=== PATIENT | male | born 1960 | race Caucasian/White ===

== ENCOUNTER 2018-09-04 11:53 | Inpatient (IN) | payer BC, SELFPAY ==
[2018-09-04] VITALS (7 sets, daily range): BP systolic 93–125; BP diastolic 69–89; PULSE 56–100; RESP 15–21; TEMP 36.1–36.8; O2SAT 93–97; BMI 25.5
--- NOTE | 2018-09-04 12:17 | EKG12_ITS ---
Test Reason : ABD PAIN Blood Pressure : / mmHG Vent. Rate : 058 BPM Atrial Rate : 058 BPM P-R Int : 142 ms QRS Dur : 078 ms QT Int : 430 ms P-R-T Axes : 057 000 052 degrees QTc Int : 422 ms Sinus bradycardia Otherwise normal ECG Confirmed by CAROLINA HIDALGO, PERCY ([id number]), editor producer SHIKHA NOVA ([id number]) on 09/08/2018 11:23:39 AM Referred By: Mary Grace Cabrera Confirmed By:ROMA FIGUEROA MD
--- NOTE | 2018-09-04 12:17 | CT_ITS ---
STUDY: CT ABDOMEN AND PELVIS WITHOUT CONTRAST REASON FOR EXAM: Male, 58 years old. Abdominal pain RADIATION DOSAGE (If Supplied By Facility): CTDIvol = ( 12.91 ) mGy, DLP = ( 740.09 ) mGycm TECHNIQUE: Transaxial images were obtained from the dome of the diaphragm to the symphysis pubis without oral contrast, and without intravenous contrast. Sagittal and coronal images were reconstructed. Individualized dose optimization techniques were used for this CT. COMPARISON: None. FINDINGS: The visualized lung bases are unremarkable. The visualized portions of the heart are within normal limits. Normal liver. There are surgical clips in the gallbladder fossa consistent with a prior cholecystectomy. There is mild splenomegaly. Normal pancreas. Normal bilateral adrenal glands. 2 cm exophytic cyst lower pole the right kidney. Normal left kidney. Moderate gastric distention. Multiple loops of moderately dilated fluid-filled small bowel with a transition point in the middle of the abdomen inferior to the umbilicus and at the level the iliac crest on image 128 consistent with a moderate small bowel obstruction no pneumatosis or pneumoperitoneum to suggest ischemia. Normal colon. The appendix is visualized and appears normal. Normal abdominal aorta. Normal inferior vena cava. Normal retroperitoneum. Normal urinary bladder. Normal abdominal wall. Normal osseous structures. CT/Abdomen/Pelvis without Cont IMPRESSION: 1. Moderate partial small bowel obstruction with a transition point in the middle the abdomen at the level the iliac crest. No evidence of ischemia. 2. Mild splenomegaly. Electronically Signed: Delta Goddard MD at 14:41 EDT Tel , Service support ,
--- NOTE | 2018-09-04 12:26 | ED.DCSUM_ITS ---
History of Present Illness Chief Complaint: Abd Pain Informant: Patient Onset: Weeks Narrative: Abdominal pain intermittently for weeks, indicates she was seen at outside facility in [facility] a few weeks ago had a CT scan of the work-up was unremarkable he was told he was constipated he was started on Colace and a liquid stool medicine that seemed to help his been having bowel movements since, however he said intermittent crampy pains that intensified today and was brought in for evaluation. He has had nausea but no vomiting no fever no cough he denies any other significant past history does report he has history of cholecystectomy no history of MD PE or DVT he works in installing [employer] did not injure himself anyway Past Medical History - Allergies and Home Meds Allergies/Adverse Reactions: Allergies celecoxib [From Celebrex] Allergy (Verified 09/04/18 11:55) Nausea Penicillins Allergy (Verified 09/04/18 11:55) Swelling Primary Care Physician: Care Physician,No Primary [Primary Care Provider] - Past Medical History: - - See above Surgical History: cholecystectomy Review of Systems General: Denies: Chills, Fever, Sweats Eyes: Denies: Visual changes - bilaterally, Diplopia ENT: Denies: Rhinorrhea, Sore throat Cardiovascular: Denies: Chest pain, Palpitations Respiratory: Denies: Dyspnea, Cough, Dyspnea on exertion Gastrointestinal: Reports: Abdominal pain. Denies: Nausea, Vomiting, Diarrhea, Melena, Hematochezia Genitourinary: Denies: Dysuria, Hematuria, Frequency Musculoskeletal: Denies: Back pain, Extremity Pain Skin: Denies: Rash, Wounds Neurological: Denies: Headache, Weakness, Numbness Physical Exam Vital Signs/Narrative: Vital Signs Temp Pulse Resp BP Pulse Ox 09/04/18 11:55 96.9 F L 69 17 108/73 97 General: Well nourished, Well developed, No Acute Distress Head: Normocephalic, Atraumatic Eyes: Perrl, EOMI ENT: Moist mucous membranes, No rhinorrhea Neck: Supple, Nontender Cardiovascular: Regular rate, Regular rhythm, No murmurs Respiratory: No distress, CTA bilaterally, Chest nontender Abdomen: Soft, Nondistended, Normal bowel sounds, Tender, Guarding Back: Nontender, Normal Inspection Extremities: Nontender, No edema Skin: Normal color, No rash Neurological: Alert, Oriented x3, Cranial nerves II-XII grossly intact, Normal Strength, Normal Sensation Psychological: Normal affect, Normal Mood Diagnostic/Tx/Re-eval - Medical Decision Making Given all the above his complaints his exam is history screening labs are obtained IV fluids pain management CT Patient screening labs are generally unremarkable, the abdominal CT shows partial small bowel obstruction see that report, we did discuss with the patient we recommended NG tube he agreed and admission he agreed IV fluids obtain a Pneumovax the hospital same further management and admission Admit stable Final impression, ED Disposition - Plan for ED Patient: Referrals: Care Physician,No Primary [Primary Care Provider] -
[2018-09-04] MEDS: Ondansetron 4 MG/2 ML Vial IV (12:32)
[2018-09-04] MEDS: 0.9% Normal Saline 1,000 ML 125 ML IV (12:32)
[2018-09-04] MEDS: morphine 8 MG/ML Syringe IV (12:32)
[2018-09-04 12:54] LABS: Absolute Lymphocyte Count 1.32 X10^3/ul (0.83-4.51); Absolute Neutrophil Count 7.9 X10^3/uL (2.0-7.7); Basophil# 0.05 X10^3/uL; Basophil% 0.5 % (0-1); Eosinophil# 0.07 X10^3/uL; Eosinophils% 0.7 % (0-5); Lymphocyte # 1.32 X10^3/ul (4.0); Lymphocyte % 12.9 % (19-41); Mean Corpuscular Volume 88.2 fL (80-94); Mean Platelet Vol. 11.6 fl (6.2-12.0); Monocyte# 0.91 X10^3/uL; Monocyte% 8.9 % (0-10); Neutrophil # 7.88 X10^3/uL (2.7-7.7); Neutrophil % 76.8 % (47-70); Platelet Count 227 K/mm3 (150-450); RBC Distribution Width CV 12.4 % (11.6-14.6); RBC Distribution Width SD 39.6 fl (35.1-43.9); Red Blood Count 5.33 M/mm3 (4.6-6.2); White Blood Count 10.3 K/mm3 (4.4-11.0)
[2018-09-04 12:55] LABS: POSITIVE COUNT NO; POSITIVE DIFFERENTIAL NO; POSITIVE MORPHOLOGY NO
[2018-09-04 13:07] LABS: AST(SGOT) 21 U/L (15-37); Alanine Aminotransfer ALT/SGPT 22 U/L (16-61); Albumin, Serum 3.4 g/dL (3.2-5.0); Alkaline Phosphatase 111 U/L (45-117); Anion Gap 10 (5-15); BUN 18 mg/dL (7-18); BUN/Creat Ratio 17.5 RATIO (10-20); Bilirubin, Direct 0.17 mg/dL (0.00-0.30); Calcium,Total 9.3 mg/dL (8.5-10.1); Chloride 101 mmol/L (98-107); Creatinine, Serum 1.03 mg/dL (0.70-1.30); EST Glomerular Filtration Rate 79 mL/min (>60); Est Glom Filt Rate - Afr Amer 95 mL/min (>60); Estimated Creatinine Clearance 80.72 ml/min; Globulin 3.4 g/dL (2.2-4.2); Glucose 367 mg/dL (74-106); Lipase 79 U/L (73-393); Potassium 4.8 mmol/L (3.5-5.1); Protein, Total 6.8 g/dL (6.4-8.2); Sodium Level 135 mmol/L (136-145)
[2018-09-04 13:10] LABS: Bacteria 0 SEEN /hpf (None Seen); Red Blood Cells-Urine 0 SEEN /hpf (0-5); Squamous Epithelial Cells - UA 0 SEEN /hpf (0-5)
[2018-09-04 13:13] LABS: Color, Urine Yellow (Yellow); Glucose, Dipstick 250 mg/dl (Normal); Ketone-Dipstick 15 mg/dl (Negative); Leukocyte Esterase-Dipstick Negative /ul (Negative); Nitrite-Dipstick Negative (Negative); Occult Blood-Urine Negative /ul (Negative); Protein-Dipstick Negative (Negative); Urine Bilirubin Dipstick Negative (Negative); Urine Clarity Clear (Clear); Urine Urobilinogen Normal (Normal)
[2018-09-04 13:22] LABS: Mucous, Urine RARE /hpf (<or=2+); White Blood Cells 0-5 SEEN /hpf (0-5)
[2018-09-04] MEDS: Morphine 4 MG/ML Syringe IV (14:37)
--- NOTE | 2018-09-04 15:26 | RAD_ITS ---
STUDY: X-RAY - ABDOMEN/PELVIS REASON FOR EXAM: Male, 58 years old. Nasogastric tube placement TECHNIQUE: Single AP view of the abdomen / pelvis. COMPARISON: None. FINDINGS: Nasogastric tube with the tip in the left upper quadrant likely within the cardia the stomach with the side-port in the distal esophagus. Status post cholecystectomy. Some mildly dilated loops of small bowel consistent with a partial small bowel obstruction. The visualized liver, spleen and kidneys are grossly normal in size and morphology. Normal soft tissue structures. Normal visualized osseous structures. RAD/Abdomen Single View (Portable) IMPRESSION: 1. Interval placement of nasogastric tube with the tip in the cardia the stomach and the side-port likely in the distal esophagus. 2. Partial small bowel obstruction. Electronically Signed: Delta Goddard MD at 16:50 EDT Tel , Service support ,
--- NOTE | 2018-09-04 15:35 | PCM.HP.STD ---
Problem List (1) Partial small bowel obstruction Status: Acute (2) Diabetes mellitus, type II Status: Chronic Qualifiers: Diabetes mellitus penitentiary insulin use: with emt intermediate use Diabetes mellitus complication status: with other specified complication Qualified Code(s): E11.69 - Type 2 diabetes mellitus with other specified complication; Z79.4 - truck terminal manager (current) use of insulin (3) HTN (hypertension) Status: Chronic Qualifiers: Hypertension type: essential hypertension Qualified Code(s): I10 - Essential (primary) hypertension (4) HLD (hyperlipidemia) Status: Chronic Qualifiers: Hyperlipidemia type: unspecified Qualified Code(s): E78.5 - Hyperlipidemia, unspecified (5) Former tobacco use Status: Chronic (6) History of alcohol abuse Status: Chronic (7) GERD (gastroesophageal reflux disease) Status: Chronic Qualifiers: Esophagitis presence: esophagitis presence not specified Qualified Code(s): K21.9 - Gastro-esophageal reflux disease without esophagitis (8) BPH (benign prostatic hyperplasia) Status: Chronic Qualifiers: Lower urinary tract symptom presence: unspecified whether lower urinary tract symptoms present Qualified Code(s): N40.0 - Benign prostatic hyperplasia without lower urinary tract symptoms History of Present Illness Date of Admission: 09/04/18 Chief Complaint: Abdominal pain The patient is a 58 y/o M w/ PMHx: Diabetes mellitus type II with neuropathy, HTN, HLD, GERD, BPH, Former Tobacco use, Former EtOH Abuse who presents to the [facility] ED on 09/04/18 with history of 1 to 2-week history of intermittent abdominal discomfort, initially in the periumbilical region with then transition to the left upper quadrant as well as epigastric, cramping and also severe occasionally in nature, currently 6 out of 10, associated nausea with dry heaving frequently with initially constipation with self administration of Colace and GoLYTELY following outside hospital ED evaluation with a CT at that time notable for constipation only with no movement today and worsened discomfort prompting return to ED. Work-up in the ED included T 96.9, heart rate 69, BP 108/73, respiratory rate 17, 97% on room air, CBC with W BC 10.3, heme globin 16, platelet 227 with left shift, CMP with sodium 135, glucose 367 otherwise not marked appearing, lipase 79, troponin less than 0.015, urinalysis with evidence of dehydration otherwise no acute infection evident, CT abdomen pelvis with a moderate partial small bowel obstruction with a transition point in the middle of the abdomen at the level of the iliac crest with no evidence of ischemia and noted mild splenomegaly. In the ED patient administered Zofran, morphine as well as normal saline. NG tube placed per ED. Surgery consulted and discussed case with evaluation of KUB with recommendation for advancements 4 cm which was relayed to nursing staff. Past Medical History Past Medical History (Chronic Problems): Chronic Problems Diabetes mellitus, type II (Chronic) HTN (hypertension) (Chronic) HLD (hyperlipidemia) (Chronic) Former tobacco use (Chronic) History of alcohol abuse (Chronic) GERD (gastroesophageal reflux disease) (Chronic) BPH (benign prostatic hyperplasia) (Chronic) Allergies celecoxib [From Celebrex] Allergy (Verified 09/04/18 11:55) Nausea Penicillins Allergy (Verified 09/04/18 11:55) Swelling Home Medications: Ambulatory Orders Medication Instructions Recorded Aspirin [Aspirin EC] 81 mg PO DAILY 09/04/18 Docusate Sodium [Colace] 100 mg PO DAILY PRN PRN 09/04/18 Gabapentin [Neurontin] 400 mg PO TID 09/04/18 Insulin Aspart [Novolog Flexpen 14 units SUBCUT TIDCM 09/04/18 ([facility])] Insulin Glargine,Hum.rec.anlog 35 unit SQ BID 09/04/18 [Lantus] Lisinopril [Zestril] 20 mg PO DAILY 09/04/18 Meloxicam [Mobic] 7.5 mg PO BID 09/04/18 Pantoprazole Sodium [Protonix] 40 mg PO DAILY 09/04/18 Tamsulosin HCl [Flomax] 0.4 mg PO DAILY 09/04/18 Surgical History: cholecystectomy, - - Cholecystectomy, left inguinal hernia repair, left ankle surgery. Psychiatric History: No pertinent psych hx Lives: Alone Smoking Status: Former smoker - Patient quit cigarette tobacco usage in 2008. Tobacco Use: Non-smoker Alcohol: Sober - Patient noted heavy alcohol consumption prior, sober since 2009. Drugs: None - *Family History Maternal History Items: - - Patient notes a maternal family history of heart disease, CO, age 82. Paternal History Items: - - Patient notes a paternal family history of coronary disease, heart disease, CO, carotid disease. Review of Systems Constitutional: Reports: Anorexia, Malaise, Weakness, Fatigue. Denies: Chills, Fever, Weight Change HEENT: Denies: Head Aches, Sinus Congestion, Sinus Drainage Cardiovascular: Denies: Chest Pain, Palpitations Respiratory: Denies: Cough, Shortness of breath at rest, Sputum production Gastrointestinal: Reports: Abdominal Pain, Constipation, Diarrhea, Nausea. Denies: Vomiting Genitourinary: Denies: Dysuria Musculoskeletal: Reports: Joint Pain. Denies: Joint Tenderness Skin: Denies: Rash, Wounds Neurological: Denies: Numbness, Tingling, Focal weakness Psychiatric: Denies: Anxiety, Depression, Homicidal Ideations, Suicidal Ideations Hematologic/ Lymphatic: Denies: Easy Bruising, Easy Bleeding VTE Information - Inpt Only VTE Present on Admission: No VTE Mechan Device Prophylaxis: SCD's VTE Pharm Prophylaxis ordered?: Yes Patient Problems: Active and Suspected Problems Partial small bowel obstruction (Acute) Subjective: Seated upright in ED bed, fatigued appearance, pending NG tube placement. Objective: Physical Examination: General: awake, alert, oriented x 3 and cooperative, seated upright in the ED bed, fatigued appearance, abdominal discomfort with palpation or with movement. Skin: normal color, turgor, no icterus, cyanosis. HEENT: AT/NC, EOMI, PERRLA, dry MM, no carotid bruits or JVD noted, staff sitting up for NG tube placement. Lungs: CTA bilaterally, moderate effort, moderate decrease BL bases, no rales, ronchi or wheezing. Heart: Regular rate and rhythm; no gallop, rub audible. Abdomen: soft, generalized notable discomfort with palpation, worse left-sided, not markedly distended, absent bowel sounds, difficult to assess HSM secondary to discomfort with examination. Extremities: no cyanosis, clubbing, or edema. Neurological: patient awake, alert, oriented x 3; cognitive function intact; pupils equally reactive to light and accomodation; cranial nerves II-XII grossly normal, moving all 4 extremities, no focal deficits, strength moderately to severely global decrease secondary to acute presentation. Psychiatric: affect appears fatigued, uncomfortable, no acute evidence of depressive or anxiety feelings. - Physical Exam Vital Signs Temp Pulse Resp BP Pulse Ox 96.9 F L 67 21 H 107/89 H 97 09/04/18 11:55 09/04/18 15:00 09/04/18 15:00 09/04/18 15:00 09/04/18 15:00 Oxygen Flow Rate (L/min) 2 Oxygen Delivery Method Nasal Cannula Weight: 178 lb Body Mass Index (BMI) 25.5 Laboratory Tests Past 24 Hrs 09/04/18 09/04/18 09/04/18 12:35 12:35 13:00 WBC 10.3 RBC 5.33 Hgb 16.0 Hct 47.0 MCV 88.2 MCH 30.0 MCHC 34.0 RDW 12.4 RDW Differential 39.6 Plt Count 227 MPV 11.6 Immature Gran % (Auto) 0.200 Neut % (Auto) 76.8 H Lymph % (Auto) 12.9 L [place] % (Auto) 8.9 Eos % (Auto) 0.7 Baso % (Auto) 0.5 Absolute Neuts (auto) 7.9 H Absolute Lymphs (auto) 1.32 Total Counted Not Reportable Sodium 135 L Potassium 4.8 Chloride 101 Carbon Dioxide 24.0 Anion Gap 10 BUN 18 Creatinine 1.03 Estim Creat Clear Calc 80.72 Est GFR (MDRD) Af Amer 95 Est GFR (MDRD) Non-Af 79 BUN/Creatinine Ratio 17.5 Glucose 367 H Calcium 9.3 Total Bilirubin 0.80 Direct Bilirubin 0.17 AST 21 ALT 22 Alkaline Phosphatase 111 Troponin I < 0.015 Total Protein 6.8 Albumin 3.4 Globulin 3.4 Lipase 79 Urine Color Yellow Urine Clarity Clear Urine pH 5.0 Ur Specific [place] 1.020 Urine Protein Negative Urine Glucose (UA) 250 H Urine Ketones 15 H Urine Occult Blood Negative Urine Nitrite Negative Urine Bilirubin Negative Urine Urobilinogen Normal Ur Leukocyte Esterase Negative Urine RBC 0 SEEN Urine WBC 0-5 SEEN Ur Squamous Epith Cells 0 SEEN Urine Bacteria 0 SEEN Urine Mucus RARE Assessment/Plan All Active Problems Partial small bowel obstruction (Acute) The patient is a 58 y/o M w/ PMHx: Diabetes mellitus type II with neuropathy, HTN, HLD, GERD, BPH, Former Tobacco use, Former EtOH Abuse who presents to the [facility] ED on 09/04/18 with history of 1 to 2-week history of intermittent abdominal discomfort, initially in the periumbilical region with then transition to the left upper quadrant as well as epigastric, cramping and also severe occasionally in nature, currently 6 out of 10, associated nausea with dry heaving frequently with initially constipation with self administration of Colace and GoLYTELY following outside hospital ED evaluation with a CT at that time notable for constipation only with no movement today and worsened discomfort prompting return to ED. (1) Abdominal pain, nausea, emesis w/ partial SBO: Work-up in the ED included T 96.9, heart rate 69, BP 108/73, respiratory rate 17, 97% on room air, CBC with W BC 10.3, heme globin 16, platelet 227 with left shift, CMP with sodium 135, glucose 367 otherwise not marked appearing, lipase 79, troponin less than 0.015, urinalysis with evidence of dehydration otherwise no acute infection evident, CT abdomen pelvis with a moderate partial small bowel obstruction with a transition point in the middle of the abdomen at the level of the iliac crest with no evidence of ischemia and noted mild splenomegaly. In the ED patient administered Zofran, morphine as well as normal saline. Will admit to MS, maintain on IVFs, continue NGT to suction w/ advancement 4 cm now with repeat KUB following, strict I&Os, IV pain/anti-emetics PRN, serial KUB as needed to montior bowel function, Famotidine IV, maintain NPO on bowel rest. General surgery consulted and pending. (2) Diabetes mellitus type II: Hold oral home regimen, continue home insulin regimen although with n.p.o. status may need to decrease long-acting by one half pending blood sugar trending, n.p.o. status, every 6 hour accu checks w/ ISS. (3) Hypertension: Holding patient home oral regimen given acute presentation with NG tube with bowel rest, PRN IV hydralazine in interim. (4) Hyperlipidemia: Not on regimen, defer to outpatient. (5) Former alcohol abuse: Sober since 2009, encouraged continued safe sobriety. (6) Former tobacco use: Encouraged continued tobacco cessation. (7) GERD: IV Famotidine. (8) BPH: Temporarily holding Flomax. (9) DVT prophylaxis: SCDs, lovenox. Code Visit Inpatient E&M: 69706 Init Hosp L3
--- NOTE | 2018-09-04 17:32 | NURSING ---
Per Kylee Oden RN from ER said the NG wasn't advanced 4cm.
--- NOTE | 2018-09-04 17:35 | RAD_ITS ---
STUDY: X-RAY - ABDOMEN/PELVIS REASON FOR EXAM: Male, 58 years old. Oral gastric tube placement TECHNIQUE: KUB COMPARISON: 09/04/2018 FINDINGS: There is an orogastric tube tip is in the stomach. There are distended loops of small bowel only partially included on the [id number] similar to prior. There is an unremarkable bowel gas pattern. There is no demonstrated free abdominal air. The visualized liver, spleen and kidneys are grossly normal in size and morphology. Normal soft tissue structures. Normal visualized osseous structures. RAD/Abdomen Single View (Portable) IMPRESSION: Orogastric tube tip in stomach Distended loops of small bowel only partially included on the exam similar to prior, ileus versus obstruction Electronically Signed: Rory Macias, at 18:53 EDT Tel , Service support ,
--- NOTE | 2018-09-04 17:51 | NURSING ---
0543 NG ADVANCED 4 CM AND KUB DONE.
[2018-09-04] MEDS: Morphine 2 MG/ML Syringe IV ×2 (18:04→20:03)
[2018-09-04] MEDS: Insulin Lispro 100 UNIT/ML INSULN.PEN SQ (18:10)
--- NOTE | 2018-09-04 18:34 | CON.PCM_ITS ---
Reason for Consult Date of Consultation: 09/04/18 History of Present Illness: The patient is a 58 year old M sent to the ER due to radiating abdominal pain as well as some chest pain. Patient states for the last couple weeks he has had abdominal pain near the umbilicus which would come and go. Patient states he has been to an outside ER in [place] a couple times and they have not found anything and sent him home per patient. Patient states even had a CAT scan while he was there however he did state it was only of a small area of abdomen. Patient had a CT abdomen pelvis on admit which showed bowel obstruction with transition point in the mid to distal ileum. Patient also has a bit of stool in his colon. Patient's labs were within normal range except for glucose of 360. Patient states he had a small bowel movement yesterday morning, denies any flatus recently. Patient states he went to the ER in [place] they initially did have him take Colace along with some GoLYTELY which he did take a week or so ago. Patient states he did have a colonoscopy about 3 years ago which was negative per the patient. States his mother was diagnosed with Crohn's disease at age 72. Otherwise denies any history of bowel cancer. Patient states he did have nausea today but denies any vomiting. The pain again started near the periumbilical area and then radiated throughout his abdomen and into his chest while he was at work, which made him concerned as he does have a family history of heart disease as he presented to the ER. Past Medical History Past Medical History (Chronic Problems): Chronic Problems Diabetes mellitus, type II (Chronic) HTN (hypertension) (Chronic) HLD (hyperlipidemia) (Chronic) Former tobacco use (Chronic) History of alcohol abuse (Chronic) GERD (gastroesophageal reflux disease) (Chronic) BPH (benign prostatic hyperplasia) (Chronic) Allergies celecoxib [From Celebrex] Allergy (Verified 09/04/18 11:55) Nausea Penicillins Allergy (Verified 09/04/18 11:55) Swelling Home Medications: Ambulatory Orders Medication Instructions Recorded Aspirin [Aspirin EC] 81 mg PO DAILY 09/04/18 Docusate Sodium [Colace] 100 mg PO DAILY PRN PRN 09/04/18 Gabapentin [Neurontin] 400 mg PO TID 09/04/18 Insulin Aspart [Novolog Flexpen 14 units SUBCUT TIDCM 09/04/18 ([facility])] Insulin Glargine,Hum.rec.anlog 35 unit SQ BID 09/04/18 [Lantus] Lisinopril [Zestril] 20 mg PO DAILY 09/04/18 Meloxicam [Mobic] 7.5 mg PO BID 09/04/18 Pantoprazole Sodium [Protonix] 40 mg PO DAILY 09/04/18 Tamsulosin HCl [Flomax] 0.4 mg PO DAILY 09/04/18 Surgical History: cholecystectomy, - - Cholecystectomy, left inguinal hernia repair, left ankle surgery. Psychiatric History: No pertinent psych hx Lives: Alone Smoking Status: Former smoker - Patient quit cigarette tobacco usage in 2008. Tobacco Use: Non-smoker Alcohol: Sober - Patient noted heavy alcohol consumption prior, sober since 2009. Drugs: None - *Family History Maternal History Items: - - Patient notes a maternal family history of heart disease, [place], age 82. Paternal History Items: - - Patient notes a paternal family history of coronary disease, heart disease, [place], carotid disease. Review of Systems Constitutional: Reports: Anorexia. Denies: Fever Eyes: Denies: Blurred vision HEENT: Denies: Difficulty Swallowing Cardiovascular: Denies: Chest Pain Respiratory: Denies: Cough Gastrointestinal: Reports: Abdominal Pain, Nausea. Denies: Vomiting Genitourinary: Denies: Dysuria Neurological: Denies: Blurred vision, Slurred speech Psychiatric: Reports: Depression. Denies: Suicidal Ideations Hematologic/ Lymphatic: Denies: Easy Bleeding Patient Problems: Active and Suspected Problems Partial small bowel obstruction (Acute) - Physical Exam General: Alert, Oriented x3, Cooperative HEENT: Atraumatic, - - NG in place Lungs: Normal air movement Cardiovascular: Regular rate Abdomen: Soft, Distended - Mild, Tender - Mostly in the right mid/lower abdomen, equivocal rebound no guarding Extremities: No clubbing, No cyanosis, No edema Neurological: Cranial nerves II-XII grossly intact Psych/Mental Status: Normal Affect Vital Signs Temp Pulse Resp BP Pulse Ox 97.3 F L 69 16 110/69 95 09/04/18 18:19 09/04/18 18:19 09/04/18 18:19 09/04/18 18:19 09/04/18 18:19 Oxygen Flow Rate (L/min) 2 Oxygen Delivery Method Room Air Weight: 178 lb Body Mass Index (BMI) 25.5 Intake and Output for Last 24 Hours 09/02/18 09/03/18 09/04/18 23:59 23:59 23:59 Output Total 500 / 500 Balance -500 / -500 Laboratory Tests Past 24 Hrs 09/04/18 09/04/18 09/04/18 12:35 12:35 13:00 WBC 10.3 RBC 5.33 Hgb 16.0 Hct 47.0 MCV 88.2 MCH 30.0 MCHC 34.0 RDW 12.4 RDW Differential 39.6 Plt Count 227 MPV 11.6 Immature Gran % (Auto) 0.200 Neut % (Auto) 76.8 H Lymph % (Auto) 12.9 L [place] % (Auto) 8.9 Eos % (Auto) 0.7 Baso % (Auto) 0.5 Absolute Neuts (auto) 7.9 H Absolute Lymphs (auto) 1.32 Total Counted Not Reportable Sodium 135 L Potassium 4.8 Chloride 101 Carbon Dioxide 24.0 Anion Gap 10 BUN 18 Creatinine 1.03 Estim Creat Clear Calc 80.72 Est GFR (MDRD) Af Amer 95 Est GFR (MDRD) Non-Af 79 BUN/Creatinine Ratio 17.5 Glucose 367 H Calcium 9.3 Total Bilirubin 0.80 Direct Bilirubin 0.17 AST 21 ALT 22 Alkaline Phosphatase 111 Troponin I < 0.015 Total Protein 6.8 Albumin 3.4 Globulin 3.4 Lipase 79 Urine Color Yellow Urine Clarity Clear Urine pH 5.0 Ur Specific [place] 1.020 Urine Protein Negative Urine Glucose (UA) 250 H Urine Ketones 15 H Urine Occult Blood Negative Urine Nitrite Negative Urine Bilirubin Negative Urine Urobilinogen Normal Ur Leukocyte Esterase Negative Urine RBC 0 SEEN Urine WBC 0-5 SEEN Ur Squamous Epith Cells 0 SEEN Urine Bacteria 0 SEEN Urine Mucus RARE Assessment/Plan All Active Problems Partial small bowel obstruction (Acute) 58-year-old male with small bowel obstruction, diabetes 1. Keep patient n.p.o./IV fluids and NG to low intermittent suction. If patient appears adequately decompressed in the morning we will plan to do a small bowel follow-through. Did discuss with patient that if the contrast is unable to pass the transition area in the small bowel he may need surgery to take a look which could include possible bowel resection. Will check KUB in the morning. 2. Continue pain control 3. Continue I/OS?strict Neva Bain M.D. Pager: [phone] [facility] [address] [place] [address], [facility] [place], [address] [place] [address] Office: [phone] Code Visit Inpatient E&M: 62260 Init Hosp L2
[2018-09-04 18:40] LABS: Bedside Glucose 295 mg/dL (70-110)
[2018-09-04] MEDS: 0.9% Normal Saline 1,000 ML 150 ML IV (21:00)
[2018-09-05] MEDS: Insulin Lispro 100 UNIT/ML INSULN.PEN SQ (00:37)
[2018-09-05 00:56] LABS: Bedside Glucose 200 mg/dL (70-110)
[2018-09-05 02:55] VITALS: BP 104/64; PULSE 62; RESP 20; TEMP 36.8; O2SAT 93
[2018-09-05] MEDS: Morphine 4 MG/ML Syringe IV (02:59)
[2018-09-05] MEDS: Enoxaparin 40 MG/0.4 ML Syringe SC (05:49)
--- NOTE | 2018-09-05 05:55 | RAD_ITS ---
STUDY: X-RAY - ABDOMEN/PELVIS REASON FOR EXAM: Male, 58 years old. TECHNIQUE: Portable semierect abdominal film COMPARISON: None. FINDINGS: Normal visualized lung bases. There is mild dilatation of the jejunal loops. There is no demonstrated free abdominal air. The visualized liver, spleen and kidneys are grossly normal in size and morphology. Normal soft tissue structures. Normal visualized osseous structures. There is an NG tube which is coiled in the stomach that was advanced to more to the antrum under fluoroscopic control. RAD/Abdomen Single View IMPRESSION: Mildly dilated jejunal loops. NG tube placed within the stomach. Electronically Signed: Solitario Darnell, at 9:30 EDT Tel , Service support ,
[2018-09-05 05:56] LABS: Bedside Glucose 126 mg/dL (70-110)
--- NOTE | 2018-09-05 06:28 | PCM.PN.SRG ---
Patient Problems: Active and Suspected Problems Partial small bowel obstruction (Acute) Subjective: Patient still having some abdominal pain requiring pain meds dates may be a slow more on the left side than the right side this morning, denies any flatus or bowel movements. NG only put out about 100 overnight however question how well it is working as the vent had fluid in it. - Physical Exam General: Alert, Oriented x3, Cooperative, No apparent distress HEENT: Atraumatic Lungs: Normal air movement Cardiovascular: Regular rate Abdomen: Soft, Distended - Mild, Tender - Left lower quadrant and right upper quadrant, no peritoneal signs Extremities: No clubbing, No cyanosis, No edema Neurological: Cranial nerves II-XII grossly intact Psych/Mental Status: Normal Affect Vital Signs Temp Pulse Resp BP Pulse Ox 98.2 F 62 20 H 104/64 93 09/05/18 02:55 09/05/18 02:55 09/05/18 02:55 09/05/18 02:55 09/05/18 02:55 Oxygen Flow Rate (L/min) 2 Oxygen Delivery Method Room Air Weight: 178 lb Body Mass Index (BMI) 25.5 Intake and Output for Last 24 Hours 09/03/18 09/04/18 09/05/18 23:59 23:59 23:59 Intake Total 180 / 1254 2182 / 2182 Output Total 500 / 820 680 / 680 Balance -320 / 434 1502 / 1502 Laboratory Tests Past 24 Hrs 09/04/18 09/04/18 09/04/18 12:35 12:35 13:00 WBC 10.3 RBC 5.33 Hgb 16.0 Hct 47.0 MCV 88.2 MCH 30.0 MCHC 34.0 RDW 12.4 RDW Differential 39.6 Plt Count 227 MPV 11.6 Immature Gran % (Auto) 0.200 Neut % (Auto) 76.8 H Lymph % (Auto) 12.9 L [place] % (Auto) 8.9 Eos % (Auto) 0.7 Baso % (Auto) 0.5 Absolute Neuts (auto) 7.9 H Absolute Lymphs (auto) 1.32 Total Counted Not Reportable Sodium 135 L Potassium 4.8 Chloride 101 Carbon Dioxide 24.0 Anion Gap 10 BUN 18 Creatinine 1.03 Estim Creat Clear Calc 80.72 Est GFR (MDRD) Af Amer 95 Est GFR (MDRD) Non-Af 79 BUN/Creatinine Ratio 17.5 Glucose 367 H Calcium 9.3 Total Bilirubin 0.80 Direct Bilirubin 0.17 AST 21 ALT 22 Alkaline Phosphatase 111 Troponin I < 0.015 Total Protein 6.8 Albumin 3.4 Globulin 3.4 Lipase 79 Urine Color Yellow Urine Clarity Clear Urine pH 5.0 Ur Specific [place] 1.020 Urine Protein Negative Urine Glucose (UA) 250 H Urine Ketones 15 H Urine Occult Blood Negative Urine Nitrite Negative Urine Bilirubin Negative Urine Urobilinogen Normal Ur Leukocyte Esterase Negative Urine RBC 0 SEEN Urine WBC 0-5 SEEN Ur Squamous Epith Cells 0 SEEN Urine Bacteria 0 SEEN Urine Mucus RARE POC Glucose 09/05/18 09/05/18 09/04/18 05:42 00:32 18:09 POC Glucose 126 H 200 H 295 H Medical Necessity - Tobacco Use Smoking Status: Former smoker - Patient quit cigarette tobacco usage in 2008. Tobacco Use: Non-smoker Assessment/Plan All Active Problems Partial small bowel obstruction (Acute) 58-year-old male with small bowel obstruction, diabetes 1. Keep patient n.p.o./IV fluids and NG to low intermittent suction. Patient's KUB still shows some dilated small bowel. Will attempt a small bowel follow-through with Gastrografin. Discussed with patient that he is unable to tolerate or this is unable to pass patient may require surgery which would include diagnostic laparoscopy, possible laparotomy, possible bowel resection. Discussed the procedure including risk but not limited to bleeding, infection, injury to another organ (i.e.colon/Small bowel, etc.), adhesions in the future, hernia at incision site, and anesthesia. Patient no further questions at this time and was agreeable to plan. 2. Continue pain control 3. Continue I/OS?strict Neva Bain M.D. Pager: [phone] [facility] [address] [place] [address], [facility], [address] [place] [id number] Office: [phone]
--- NOTE | 2018-09-05 07:00 | RAD_ITS ---
STUDY: FL SMALL BOWEL FOLLOW-THROUGH WITH SERIAL FILMS REASON FOR EXAM: Male, 58 years old. Small bowel obstruction? TECHNIQUE: The dictating radiologist was not present at the time of imaging acquisition and did not perform the spot views. Next line radiodense contrast administered via nasogastric tube. Surface Ship Usw Supervisor imaging was followed by contrast administration and serial views of the abdomen at 15, 40, 60, 90, 120 minutes. Thereafter, several spot images were obtained in the right quadrant of the abdomen. COMPARISON: X-ray abdomen 09/05/2018, 09/04/2018. FINDINGS: Cholecystectomy. No apparent organomegaly. Moderate stool burden of the ascending colon, mild stool burden of large bowel distally. Nondilated large bowel. On paperboard boxes estimator images, multiple mildly dilated loops of small bowel are present in the left quadrant of the abdomen. Measuring up to 4.7 cm in diameter. Upon administration of contrast, grossly normal caliber, contour and mucosal pattern of the stomach which is incompletely distended. The contrast is administered by nasogastric tube. At 15 minutes, contrast traverses the majority of the jejunum which lies in the right quadrant of the abdomen. Loops of dilated ileum occupy the left quadrant of the abdomen. The jejunum is nondilated and exhibits normal mucosal pattern. A small amount of contrast does enter the proximal ileum. 40 minutes, multiple loops of proximal ileum in the right lower quadrant of the abdomen filled with contrast, with limited extension of contrast into the dilated loops of ileum in the left quadrant. At 60 minutes, the dilated loops of ileum in the left quadrant of the abdomen filled with contrast. At 90 minutes, no significant progression of contrast. At 120 minutes, contrast enters the proximal large bowel. Spot imaging of the right lower quadrant reveals nondilated loops of distal ileum. RAD/Small Bowel Series Only IMPRESSION: Dilated loops of proximal to mid ileum, predominantly distributed in left quadrant of the abdomen, with delayed small bowel transit. Consistent with persistent intermediate grade small bowel obstruction. Comparison CT abdomen and pelvis of 09/04/2017 there was a defined transition point between dilated and nondilated ileum centered on axial series 2 image 127 in the midline, and coronal series 601 image 36 and sagittal series 602 image 78, with bird beaking. Suspicious for adhesive disease. Electronically Signed: Delta Castro MD at 12:44 EDT Tel , Service support ,
[2018-09-05 07:18] LABS: Absolute Lymphocyte Count 1.32 X10^3/ul (0.83-4.51); Absolute Neutrophil Count 3.7 X10^3/uL (2.0-7.7); Basophil# 0.04 X10^3/uL; Basophil% 0.7 % (0-1); Eosinophil# 0.08 X10^3/uL; Eosinophils% 1.3 % (0-5); Hematocrit 42.7 % (40-54); Hemoglobin 14.2 g/dl (13.0-16.5); Lymphocyte # 1.32 X10^3/ul (4.0); Lymphocyte % 22.1 % (19-41); Mean Corp Hgb Conc 33.3 g/gl (32-36); Mean Corpuscular Hgb 29.8 pg (27.0-32.0); Mean Corpuscular Volume 89.5 fL (80-94); Monocyte# 0.83 X10^3/uL; Monocyte% 13.9 % (0-10); Neutrophil # 3.68 X10^3/uL (2.7-7.7); Neutrophil % 61.8 % (47-70); Platelet Count 193 K/mm3 (150-450); RBC Distribution Width CV 12.5 % (11.6-14.6); RBC Distribution Width SD 40.4 fl (35.1-43.9); Red Blood Count 4.77 M/mm3 (4.6-6.2)
[2018-09-05 07:37] LABS: Anion Gap 2 (5-15); BUN 13 mg/dL (7-18); BUN/Creat Ratio 16.2 RATIO (10-20); Calcium,Total 8.1 mg/dL (8.5-10.1); Chloride 108 mmol/L (98-107); EST Glomerular Filtration Rate 105 mL/min (>60); Est Glom Filt Rate - Afr Amer 127 mL/min (>60); Estimated Creatinine Clearance 103.92 ml/min; Glucose 106 mg/dL (74-106); Potassium 3.9 mmol/L (3.5-5.1); Sodium Level 139 mmol/L (136-145)
[2018-09-05 07:43] LABS: POSITIVE COUNT NO; POSITIVE DIFFERENTIAL NO; POSITIVE MORPHOLOGY NO
[2018-09-05 08:00] VITALS: BP 96/58; PULSE 61; RESP 16; TEMP 36.7; O2SAT 96
--- NOTE | 2018-09-05 08:53 | NURSING ---
pt off unit for xray notified by rn discharge that surgery scheduled by Dr. Bain for [id number]
[2018-09-05 10:37] LABS: Hemoglobin A1c 11.5 % (4.2-6.3)
--- NOTE | 2018-09-05 11:08 | NURSING ---
Pt off unit at this time for xray- brother in pt room waiting for his return.
--- NOTE | 2018-09-05 11:43 | NURSING ---
Pt reports flatus
--- NOTE | 2018-09-05 12:11 | PCM.PROGNOTE ---
Patient Problems: Active and Suspected Problems Partial small bowel obstruction (Acute) Subjective: Chief complaint: Follow-up after admission for partial small bowel obstruction. Patient seen and examined. No acute events overnight. Abdominal pain improved but still alert, still having abdominal distention. He started passing small amount of flatus, no bowel movement. Denied nausea or vomiting. His vital signs are stable. - Physical Exam General: Alert, Oriented x3, Cooperative, No apparent distress HEENT: Atraumatic, PERRLA, EOMI, Normocephalic Oral: Moist Mucosa, No Gingival or Mucosal Lesions/ Ulcerations Neck: Supple, No JVD, Negative Carotid Bruits, Trachea Midline, Thyroid Normal Size and Texture Lungs: Clear to auscultation, Normal air movement, No rhonchi, No wheeze, No rales, Rhonchi Cardiovascular: Regular rate, Regular Rhythm, Normal S1, Normal S2, PMI Normal Abdomen: Soft, Hyperactive Bowel Sounds, Distended, Tender - Minimal tenderness, no guarding or rigidity. Extremities: No clubbing, No cyanosis, No edema Skin: No rashes, No breakdown Lymphatic: No Cervical, Supraclavicular, or Inguinal Adenopathy Neurological: Cranial nerves II-XII grossly intact, Motor Exam 5/5 strength throughout Psych/Mental Status: Normal Affect, Appropriate, Alert and oriented to time, place, person, mood and affect Vital Signs Temp Pulse Resp BP Pulse Ox 98.1 F 61 16 96/58 L 96 09/05/18 08:00 09/05/18 08:00 09/05/18 08:00 09/05/18 08:00 09/05/18 08:00 Oxygen Flow Rate (L/min) 2 Oxygen Delivery Method Room Air Weight: 178 lb Body Mass Index (BMI) 25.5 Intake and Output for Last 24 Hours 09/03/18 09/04/18 09/05/18 23:59 23:59 23:59 Intake Total 180 / 1254 2307 / 2307 Output Total 500 / 820 680 / 680 Balance -320 / 434 1627 / 1627 Laboratory Tests Past 24 Hrs 09/04/18 09/04/18 09/04/18 12:35 12:35 13:00 WBC 10.3 RBC 5.33 Hgb 16.0 Hct 47.0 MCV 88.2 MCH 30.0 MCHC 34.0 RDW 12.4 RDW Differential 39.6 Plt Count 227 MPV 11.6 Immature Gran % (Auto) 0.200 Neut % (Auto) 76.8 H Lymph % (Auto) 12.9 L [place] % (Auto) 8.9 Eos % (Auto) 0.7 Baso % (Auto) 0.5 Absolute Neuts (auto) 7.9 H Absolute Lymphs (auto) 1.32 Total Counted Not Reportable Sodium 135 L Potassium 4.8 Chloride 101 Carbon Dioxide 24.0 Anion Gap 10 BUN 18 Creatinine 1.03 Estim Creat Clear Calc 80.72 Est GFR (MDRD) Af Amer 95 Est GFR (MDRD) Non-Af 79 BUN/Creatinine Ratio 17.5 Glucose 367 H Hemoglobin A1c Calcium 9.3 Total Bilirubin 0.80 Direct Bilirubin 0.17 AST 21 ALT 22 Alkaline Phosphatase 111 Troponin I < 0.015 Total Protein 6.8 Albumin 3.4 Globulin 3.4 Lipase 79 Urine Color Yellow Urine Clarity Clear Urine pH 5.0 Ur Specific [place] 1.020 Urine Protein Negative Urine Glucose (UA) 250 H Urine Ketones 15 H Urine Occult Blood Negative Urine Nitrite Negative Urine Bilirubin Negative Urine Urobilinogen Normal Ur Leukocyte Esterase Negative Urine RBC 0 SEEN Urine WBC 0-5 SEEN Ur Squamous Epith Cells 0 SEEN Urine Bacteria 0 SEEN Urine Mucus RARE 09/05/18 09/05/18 09/05/18 07:03 07:03 07:03 WBC 6.0 RBC 4.77 Hgb 14.2 Hct 42.7 MCV 89.5 MCH 29.8 MCHC 33.3 RDW 12.5 RDW Differential 40.4 Plt Count 193 MPV 11.0 Immature Gran % (Auto) 0.200 Neut % (Auto) 61.8 Lymph % (Auto) 22.1 [place] % (Auto) 13.9 H Eos % (Auto) 1.3 Baso % (Auto) 0.7 Absolute Neuts (auto) 3.7 Absolute Lymphs (auto) 1.32 Total Counted Not Reportable Sodium 139 Potassium 3.9 Chloride 108 H Carbon Dioxide 29.0 Anion Gap 2 L BUN 13 Creatinine 0.80 Estim Creat Clear Calc 103.92 Est GFR (MDRD) Af Amer 127 Est GFR (MDRD) Non-Af 105 BUN/Creatinine Ratio 16.2 Glucose 106 Hemoglobin A1c 11.5 H Calcium 8.1 L Total Bilirubin Direct Bilirubin AST ALT Alkaline Phosphatase Troponin I Total Protein Albumin Globulin Lipase Urine Color Urine Clarity Urine pH Ur Specific [place] Urine Protein Urine Glucose (UA) Urine Ketones Urine Occult Blood Urine Nitrite Urine Bilirubin Urine Urobilinogen Ur Leukocyte Esterase Urine RBC Urine WBC Ur Squamous Epith Cells Urine Bacteria Urine Mucus POC Glucose 09/05/18 09/05/18 09/04/18 05:42 00:32 18:09 POC Glucose 126 H 200 H 295 H Medical Necessity - Tobacco Use Smoking Status: Former smoker - Patient quit cigarette tobacco usage in 2008. Tobacco Use: Non-smoker Assessment/Plan All Active Problems Partial small bowel obstruction (Acute) This is a 58 years old male patient admitted because of abdominal pain associated with nausea and he was found to have partial small bowel obstruction. #1 partial small bowel obstruction: Kept on n.p.o., IV fluids, NG tube suction and IV pain medications as well as IV antiemetics. CT scan abdomen and pelvis without contrast revealed moderate partial small bowel obstruction with transition point in the middle of the abdomen at the level of the iliac crest. KUB from today revealed mildly dilated jejunal loops. Patient had cholecystectomy and herniorrhaphy years ago and this obstruction likely due to adhesions. Patient symptoms minimally improved, he started passing small amount of flatus, no bowel movement. His vital signs are stable. CBC and BMP was unremarkable. LFT and lipase were normal. Serum electrolytes were within normal limits. General surgery on the case. Initially, decision was made to take patient for surgery today but because of repeat x-ray abdomen revealed improvement of the bowel pattern and patient started having flatus, surgery postponed. Plan to continue same treatment, reevaluate tomorrow. #2 type 2 diabetes mellitus: He is on n.p.o., IV fluids. Blood sugar has been in the 200s. He is on Lantus twice daily and sliding scale. #3 hypertension: Blood pressure stable, he is on IV hydralazine PRN. Lisinopril held. #4 GERD: Continue Pepcid IV. #5 benign prostatic hypertrophy: Flomax held. #6 DVT prophylaxis: Subcu Lovenox. This note was generated with [facility] software. It may contain incorrect words, spelling, and punctuation that were not noted in checking the note before signing. Code Visit Inpatient E&M: 74661 Subs Hosp L2
--- NOTE | 2018-09-05 12:30 | PCM.PN.BLA ---
Progress Note Patient small bowel follow-through test. The contrast has gotten to the colon however there is some still distended small bowel; however, patient is having flatus as well as bowel movement/diarrhea. Patient denies any nausea and does state pain is improved does have a little bit of pain still in the right lower abdomen. The patient has not needed pain meds since 3 AM this morning. Discussed with patient that we would not plan to have surgery today. Encourage patient to walk the halls. We will check the NG after being clamped for 3 hours if no nausea and low residual will remove the NG. We will move slowly on his diet as he did still have some dilated small bowels see that that has continues. If he continues to do well tonight may advance to clears. Dr. Delaney will be covering over the weekend.
[2018-09-05 12:31] LABS: Bedside Glucose 89 mg/dL (70-110)
--- NOTE | 2018-09-05 12:53 | CASEMGMT ---
RN CM Assessment Presentation: SBO Intro role of CM and purpose of RN CM assessment to patient in room. Pt is awake, alert and able to participate. Demographics, PCP and Pharmacy verified. Pt did not have emergency contact, NOK listed. Name, #'s for sisters provided and entered into demographics. PCP: Dr. Magig Baxter, [place], [place] (entered into demographics) Specialist: Dr. Howard, endocrinology, [place], [place] Preferred Pharmacy: [address], [place] Insurance: [employer] Prescription Benefit: yes LNOK: none listed. Living Arrangements: Lives independently in one story home. Denies any care needs. Transportation: drives DME: none HHC: none Patient DC goals: Home DC PLAN: Home. No dc needs identified. Santhosh QURESHIN RN ACM
[2018-09-05] MEDS: Bisacodyl 10 MG Suppository RECTAL (13:13)
[2018-09-05] MEDS: 0.9% Normal Saline 1,000 ML 150 ML IV ×2 (13:14→20:09)
[2018-09-05 14:00] VITALS: BP 118/67; PULSE 58; RESP 16; TEMP 36.4; O2SAT 98
[2018-09-05 17:45] LABS: Bedside Glucose 69 mg/dL (70-110)
[2018-09-05 18:11] LABS: Bedside Glucose 151 mg/dL (70-110)
--- NOTE | 2018-09-05 18:17 | NURSING ---
This RN entered pt room to check BGT. Pt was in bathroom. This RN changed linens while waiting. Pt came out and requested bgt to be checked because he states he feels funny and is sweating. This Rn checked bgt which = 69. 2 apple juices given and a jello. Pt states he felt better and requested to ambulate unit with staff. When pt returned to room bgt rechecked and = 151. pt aware and will go back to sugar free options at this time.
[2018-09-05] MEDS: Morphine 2 MG/ML Syringe IV (18:45)
[2018-09-05 20:05] VITALS: BP 123/90; PULSE 58; RESP 18; TEMP 36.9; O2SAT 94
[2018-09-05 22:00] LABS: Bedside Glucose 77 mg/dL (70-110)
[2018-09-05 22:40] LABS: Bedside Glucose 179 mg/dL (70-110)
[2018-09-06] MEDS: Morphine 2 MG/ML Syringe IV ×4 (01:13→21:22)
[2018-09-06 01:16] LABS: Bedside Glucose 143 mg/dL (70-110)
[2018-09-06 02:10] VITALS: BP 106/64; PULSE 63; RESP 16; TEMP 36.6; O2SAT 95
--- NOTE | 2018-09-06 05:55 | RAD_ITS ---
STUDY: X-RAY - ABDOMEN/PELVIS REASON FOR EXAM: Male, 58 years old. TECHNIQUE: COMPARISON: September 06, 2018 FINDINGS: The previously seen Gastrografin the small and large bowel now showed the no significant contrast material there is still some contrast within the colon and rectum. No evidence of bowel obstruction identified. Although there is still mild dilatation of some jejunal loops. No free intraperitoneal air is seen, no organomegaly or soft tissue masses identified. RAD/Abd Decub and/or Erect(Portabl IMPRESSION: Negative study. Electronically Signed: Solitario Darnell, at 9:14 EDT Tel , Service support ,
[2018-09-06] MEDS: Enoxaparin 40 MG/0.4 ML Syringe SC (06:07)
[2018-09-06] MEDS: 0.9% Normal Saline 1,000 ML 150 ML IV ×3 (06:08→17:25)
[2018-09-06 06:36] LABS: Bedside Glucose 146 mg/dL (70-110)
[2018-09-06 06:36] LABS: Bedside Glucose 60 mg/dL (70-110)
[2018-09-06 07:47] VITALS: BP 136/86; PULSE 55; RESP 18; TEMP 36.7; O2SAT 98
[2018-09-06 08:11] LABS: Bedside Glucose 211 mg/dL (70-110)
--- NOTE | 2018-09-06 10:22 | PCM.PROGNOTE ---
Patient Problems: Active and Suspected Problems Partial small bowel obstruction (Acute) Subjective: Chief complaint: Follow-up after admission for partial small bowel obstruction. Patient seen and examined. No acute events overnight. This morning, he complained of increasing abdominal pain on the right side. He has been passing small amount of flatus. He had a bowel movement last night. His vital signs are stable, afebrile. He was started on full liquid diet by surgery today. - Physical Exam General: Alert, Oriented x3, Cooperative, - - He is in mild to moderate pain. HEENT: Atraumatic, PERRLA, EOMI, Normocephalic Oral: Moist Mucosa, No Gingival or Mucosal Lesions/ Ulcerations Neck: Supple, No JVD, Negative Carotid Bruits, Trachea Midline, Thyroid Normal Size and Texture Lungs: Clear to auscultation, Normal air movement, No rhonchi, No wheeze, No rales, Diminished Cardiovascular: Regular rate, Regular Rhythm, Normal S1, Normal S2, PMI Normal Abdomen: Bowel Sounds Present, Non-Distended, No Hepato-splenomegaly, Tender Extremities: No clubbing, No cyanosis, No edema Skin: No rashes, No breakdown Lymphatic: No Cervical, Supraclavicular, or Inguinal Adenopathy Neurological: Cranial nerves II-XII grossly intact, Neuro grossly intact Psych/Mental Status: Normal Affect, Appropriate, Alert and oriented to time, place, person, mood and affect Vital Signs Temp Pulse Resp BP Pulse Ox 98.1 F 55 L 18 136/86 H 98 09/06/18 07:47 09/06/18 07:47 09/06/18 07:47 09/06/18 07:47 09/06/18 07:47 Oxygen Flow Rate (L/min) 2 Oxygen Delivery Method Room Air Weight: 178 lb Body Mass Index (BMI) 25.5 Intake and Output for Last 24 Hours 09/04/18 09/05/18 09/06/18 23:59 23:59 23:59 Intake Total 180 / 1254 3540 / 4555 2174 / 2174 Output Total 500 / 820 955 / 955 Balance -320 / 434 2585 / 3600 2174 / 2174 Laboratory Tests Past 24 Hrs 09/05/18 07:03 Hemoglobin A1c 11.5 H POC Glucose 09/06/18 09/06/18 09/06/18 07:52 06:30 06:01 POC Glucose 211 H 146 H 60 L 09/06/18 09/05/18 09/05/18 00:38 22:35 21:53 POC Glucose 143 H 179 H 77 09/05/18 09/05/18 09/05/18 18:05 17:15 12:12 POC Glucose 151 H 69 L 89 Clinical Impression(s) from Imaging Studies Small Bowel X-Ray 09/05/18 07:00 IMPRESSION: Dilated loops of proximal to mid ileum, predominantly distributed in left quadrant of the abdomen, with delayed small bowel transit. Consistent with persistent intermediate grade small bowel obstruction. Comparison CT abdomen and pelvis of 09/04/2017 there was a defined transition point between dilated and nondilated ileum centered on axial series 2 image 127 in the midline, and coronal series 601 image 36 and sagittal series 602 image 78, with bird beaking. Suspicious for adhesive disease. Electronically Signed: Delta Castro MD at 12:44 EDT Tel , Service support , Abdomen X-Ray 09/06/18 05:55 IMPRESSION: Negative study. Electronically Signed: Solitario Darnell, at 9:14 EDT Tel , Service support , Medical Necessity - Tobacco Use Smoking Status: Former smoker - Patient quit cigarette tobacco usage in 2008. Tobacco Use: Non-smoker Assessment/Plan All Active Problems Partial small bowel obstruction (Acute) This is a 58 years old male patient admitted because of abdominal pain associated with nausea and he was found to have partial small bowel obstruction. #1 partial small bowel obstruction: Repeat abdominal x-ray today revealed no evidence of bowel obstruction, negative study. Patient is complaining of increasing abdominal pain although he has been passing flatus and he had bowel movement last night. He denied nausea or vomiting. His vital signs are stable. General surgery on the case, started on full liquid diet. Plan: Continue same treatment, full liquid diet, repeat CBC and BMP tomorrow morning, patient may need to stay until tomorrow to ensure resolution of symptoms. #2 type 2 diabetes mellitus: Started on full liquid diet today. Blood sugar has been in the 200s. He is on Lantus twice daily and sliding scale. #3 hypertension: Blood pressure stable, he is on IV hydralazine PRN. Lisinopril held. Resume lisinopril as patient tolerates full liquid diet. #4 GERD: Continue Pepcid IV. #5 benign prostatic hypertrophy: Flomax held. Resume Flomax if patient tolerates full liquid diet. #6 DVT prophylaxis: Subcu Lovenox. This note was generated with [employer] dictation software. It may contain incorrect words, spelling, and punctuation that were not noted in checking the note before signing. Code Visit Inpatient E&M: 55269 Subs Hosp L2
--- NOTE | 2018-09-06 10:53 | PCM.PN.SRG ---
Patient Problems: Active and Suspected Problems Partial small bowel obstruction (Acute) Subjective: Patient has passed small amounts of flatus. Complaining of some right-sided abdominal pain. Objective: Abdomen is soft there is no rebound guarding or peritoneal signs identified. - Physical Exam Vital Signs Temp Pulse Resp BP Pulse Ox 98.1 F 55 L 18 136/86 H 98 09/06/18 07:47 09/06/18 07:47 09/06/18 07:47 09/06/18 07:47 09/06/18 07:47 Oxygen Flow Rate (L/min) 2 Oxygen Delivery Method Room Air Weight: 178 lb Body Mass Index (BMI) 25.5 Intake and Output for Last 24 Hours 09/04/18 09/05/18 09/06/18 23:59 23:59 23:59 Intake Total 180 / 1254 3540 / 4555 2174 / 2174 Output Total 500 / 820 955 / 955 Balance -320 / 434 2585 / 3600 2174 / 2174 POC Glucose 09/06/18 09/06/18 09/06/18 07:52 06:30 06:01 POC Glucose 211 H 146 H 60 L 09/06/18 09/05/18 09/05/18 00:38 22:35 21:53 POC Glucose 143 H 179 H 77 09/05/18 09/05/18 09/05/18 18:05 17:15 12:12 POC Glucose 151 H 69 L 89 Medical Necessity - Tobacco Use Smoking Status: Former smoker - Patient quit cigarette tobacco usage in 2008. Tobacco Use: Non-smoker Assessment/Plan All Active Problems Partial small bowel obstruction (Acute) Believe it is appropriate to start him on full liquids today. See how his symptoms resolved. Abdominal x-ray reviewed showing air throughout the colon with contrast in the rectum.
[2018-09-06 11:31] LABS: Bedside Glucose 236 mg/dL (70-110)
[2018-09-06 13:57] VITALS: BP 124/92; PULSE 62; RESP 18; TEMP 36.7; O2SAT 98
[2018-09-06 15:11] LABS: Bedside Glucose 361 mg/dL (70-110)
[2018-09-06] MEDS: Insulin Lispro 100 UNIT/ML INSULN.PEN SC ×2 (17:21→21:34)
[2018-09-06 17:50] LABS: Bedside Glucose 257 mg/dL (70-110)
[2018-09-06 19:57] VITALS: BP 123/73; PULSE 51; RESP 18; TEMP 36.7; O2SAT 98
[2018-09-06 21:45] LABS: Bedside Glucose 190 mg/dL (70-110)
[2018-09-07 03:00] VITALS: BP 110/69; PULSE 46; RESP 18; TEMP 36.7; O2SAT 96
[2018-09-07] MEDS: Enoxaparin 40 MG/0.4 ML Syringe SC (05:17)
[2018-09-07 06:50] LABS: Anion Gap 7 (5-15); BUN 5 mg/dL (7-18); BUN/Creat Ratio 4.9 RATIO (10-20); Calcium,Total 8.9 mg/dL (8.5-10.1); Chloride 106 mmol/L (98-107); Creatinine, Serum 1.03 mg/dL (0.70-1.30); EST Glomerular Filtration Rate 79 mL/min (>60); Est Glom Filt Rate - Afr Amer 95 mL/min (>60); Estimated Creatinine Clearance 80.72 ml/min; Glucose 149 mg/dL (74-106); Potassium 4.3 mmol/L (3.5-5.1); Sodium Level 143 mmol/L (136-145)
[2018-09-07 06:57] LABS: Absolute Lymphocyte Count 1.73 X10^3/ul (0.83-4.51); Absolute Neutrophil Count 2.8 X10^3/uL (2.0-7.7); Basophil# 0.08 X10^3/uL; Basophil% 1.6 % (0-1); Eosinophil# 0.13 X10^3/uL; Eosinophils% 2.5 % (0-5); Hematocrit 47.9 % (40-54); Hemoglobin 12.7 g/dl (13.0-16.5); Lymphocyte # 1.73 X10^3/ul (4.0); Lymphocyte % 33.6 % (19-41); Mean Corp Hgb Conc 26.5 g/gl (32-36); Mean Corpuscular Hgb 23.5 pg (27.0-32.0); Mean Corpuscular Volume 88.7 fL (80-94); Mean Platelet Vol. 11.4 fl (6.2-12.0); Monocyte# 0.42 X10^3/uL; Monocyte% 8.2 % (0-10); Neutrophil # 2.77 X10^3/uL (2.7-7.7); Neutrophil % 53.7 % (47-70); POSITIVE COUNT NO; POSITIVE DIFFERENTIAL NO; POSITIVE MORPHOLOGY NO; Platelet Count 252 K/mm3 (150-450); RBC Distribution Width CV 12.3 % (11.6-14.6); RBC Distribution Width SD 40.3 fl (35.1-43.9); White Blood Count 5.2 K/mm3 (4.4-11.0)
[2018-09-07 07:00] LABS: Bedside Glucose 147 mg/dL (70-110)
[2018-09-07] MEDS: 0.9% Normal Saline 1,000 ML 150 ML IV ×2 (08:12)
[2018-09-07] MEDS: Morphine 2 MG/ML Syringe IV ×2 (08:13→13:23)
[2018-09-07 08:20] VITALS: PULSE 50; O2SAT 97
[2018-09-07 08:22] VITALS: BP 134/76; PULSE 50; RESP 20; TEMP 36.6; O2SAT 97
--- NOTE | 2018-09-07 08:23 | PCM.PN.SRG ---
Patient Problems: Active and Suspected Problems Partial small bowel obstruction (Acute) Subjective: Patient states that he has been passing some small amounts of flatus but really has not had much in the way of bowel movements over the last 24 hours. He is not nauseated. His pain seems to be point tender on the right side of his abdomen. Objective: Tender along the right side of the abdomen no rebound guarding or peritoneal signs are identified. - Physical Exam Vital Signs Temp Pulse Resp BP Pulse Ox 98.1 F 46 L 18 110/69 96 09/07/18 03:00 09/07/18 03:00 09/07/18 03:00 09/07/18 03:00 09/07/18 03:00 Oxygen Flow Rate (L/min) 2 Oxygen Delivery Method Room Air Weight: 178 lb Body Mass Index (BMI) 25.5 Intake and Output for Last 24 Hours 09/05/18 09/06/18 09/07/18 23:59 23:59 23:59 Intake Total 3540 / 4555 4372 / 5833 2545 / 2545 Output Total 955 / 955 Balance 2585 / 3600 4372 / 5833 2545 / 2545 Laboratory Tests Past 24 Hrs 09/07/18 09/07/18 06:18 06:18 WBC 5.2 RBC 5.40 Hgb 12.7 L Hct 47.9 MCV 88.7 MCH 23.5 L MCHC 26.5 L RDW 12.3 RDW Differential 40.3 Plt Count 252 MPV 11.4 Immature Gran % (Auto) 0.400 Neut % (Auto) 53.7 Lymph % (Auto) 33.6 [place] % (Auto) 8.2 Eos % (Auto) 2.5 Baso % (Auto) 1.6 H Absolute Neuts (auto) 2.8 Absolute Lymphs (auto) 1.73 Total Counted Not Reportable Sodium 143 Potassium 4.3 Chloride 106 Carbon Dioxide 30.0 Anion Gap 7 BUN 5 L Creatinine 1.03 Estim Creat Clear Calc 80.72 Est GFR (MDRD) Af Amer 95 Est GFR (MDRD) Non-Af 79 BUN/Creatinine Ratio 4.9 L Glucose 149 H Calcium 8.9 POC Glucose 09/07/18 09/06/18 09/06/18 06:53 21:33 17:19 POC Glucose 147 H 190 H 257 H 09/06/18 09/06/18 15:04 11:20 POC Glucose 361 H 236 H Medical Necessity - Tobacco Use Smoking Status: Former smoker - Patient quit cigarette tobacco usage in 2008. Tobacco Use: Non-smoker Assessment/Plan All Active Problems Partial small bowel obstruction (Acute) I think the best thing to do at this point is to obtain a CAT scan with both IV and p.o. contrast to see if we can delineate a specific point that looks like it could be possible stricture and I am going to order that test this morning.
--- NOTE | 2018-09-07 08:24 | CT_ITS ---
STUDY: CT ABDOMEN AND PELVIS WITH CONTRAST REASON FOR EXAM: Male, 58 years old. RADIATION DOSAGE (If Supplied By Facility): CTDIvol = ( 12.7 ) mGy, DLP = ( 812.58 ) mGycm TECHNIQUE: Transaxial images were obtained from the dome of the diaphragm to the symphysis pubis without oral contrast. 100CC IV/Oral Isovue 300 was administered. Sagittal and coronal images were reconstructed. Individualized dose optimization techniques were used for this CT. COMPARISON: September 04, 2018. FINDINGS: The liver is normal in size and attenuation with no abnormal enhancement noted, no focal lesion noted however there are multiple calcified granulomas. The spleen is moderately enlarged tiny calcification noted within it. The gallbladder is absent with metallic clips in the region. The adrenal glands and the pancreas are unremarkable. Both kidneys are normal in size shape and position the previously described exophytic lesion inferior aspect of the right kidney again seen most likely present exophytic cyst which is not enhancing. There is mildly distended small bowel but there is gas and contrast within the small bowel and colon down to the rectum no evidence of mechanical bowel obstruction seen. There are multiple small mesenteric lymph nodes noted. The urinary bladder is unremarkable the prostate is mildly enlarged. The appendix is intact. CT/Abdomen/Pelvis WITH Contrast IMPRESSION: Tiny calcified granulomas in the liver and spleen which is enlarged. Multiple small mesenteric lymph nodes No evidence of mechanical small or large bowel obstruction Electronically Signed: Solitario Darnell, at 12:42 EDT Tel , Service support ,
--- NOTE | 2018-09-07 08:38 | NURSING ---
Recently up walking halls then became painful. Pain medication was given. Eating breakfast at this time.
[2018-09-07] MEDS: Insulin Lispro 100 UNIT/ML INSULN.PEN SC (11:05)
--- NOTE | 2018-09-07 11:27 | NURSING ---
Off the floor, going to CT at this time.
[2018-09-07 11:41] LABS: Bedside Glucose 308 mg/dL (70-110)
--- NOTE | 2018-09-07 15:16 | DCINST_ITS ---
- Discharge Diagnoses Current Active Problems: Current Active and Chronic Problems Partial small bowel obstruction (Acute) Diabetes mellitus, type II (Chronic) HTN (hypertension) (Chronic) HLD (hyperlipidemia) (Chronic) Former tobacco use (Chronic) History of alcohol abuse (Chronic) GERD (gastroesophageal reflux disease) (Chronic) BPH (benign prostatic hyperplasia) (Chronic) You will use the following diet at home:: Calorie/Carbohydrate Controlled (specify 1200, 1400, etc) - 1800 chioma., Cardiac, Other - Light diet,advance as tolerated. Discharge Activity: Return to Normal Activity, May not drive while taking narcotic pain medications. Weight Bearing Status: Weight bearing as tolerated Call your doctor if you observe: Fever of 101 or Higher, Shortness of breath, Dizziness, Fainting spells, Chest pain, Increased palpitations (irregular heartbeat), Uncontrolled pain Instructions: Small Bowel Obstruction Allergies/Adverse Reactions: Allergies celecoxib [From Celebrex] Allergy (Verified 09/04/18 11:55) Nausea Penicillins Allergy (Verified 09/04/18 11:55) Swelling Medications to take at Discharge Aspirin [Aspirin EC] 81 mg PO DAILY 09/04/18 Docusate Sodium [Colace] 100 mg PO DAILY PRN PRN 09/04/18 Gabapentin [Neurontin] 400 mg PO TID 09/04/18 Insulin Aspart [Novolog Flexpen] 14 units SUBCUT TIDCM 09/04/18 Insulin Glargine,Hum.rec.anlog [Lantus] 35 unit SQ BID 09/04/18 Lisinopril [Zestril] 20 mg PO DAILY 09/04/18 Meloxicam [Mobic] 7.5 mg PO BID 09/04/18 Pantoprazole Sodium [Protonix] 40 mg PO DAILY 09/04/18 Tamsulosin HCl [Flomax] 0.4 mg PO DAILY 09/04/18 Oxycodone [Oxyir] 5 mg PO Q12H PRN PRN 5 Days #10 tab 09/07/18 The following prescriptions were given: Oxycodone [Oxyir] 5 mg PO Q12H PRN PRN 5 Days #10 tab PRN Reason: Abdominal pain Prescription Printed Primary Care Physician: Care Physician,No Primary [NON-STAFF] - Please follow up with your Primary Care Physician in: 1 week. Test Results: Test results from this visit will be discussed in further detail at your follow- up appointment, if applicable. Please Follow Up With: Neva Bain MD When: 2-3 days.
--- NOTE | 2018-09-07 15:18 | DS.PCM_ITS ---
Discharge Date and Diagnosis - Problem List Patient Problems: Active and Suspected Problems Partial small bowel obstruction (Acute) Date of Admission: 09/04/18 Date of Discharge: 09/07/18 - Primary Discharge Diagnosis Active and Suspected Problems Partial small bowel obstruction (Acute) - Secondary Discharge Diagnosis Chronic Problems Diabetes mellitus, type II (Chronic) HTN (hypertension) (Chronic) HLD (hyperlipidemia) (Chronic) Former tobacco use (Chronic) History of alcohol abuse (Chronic) GERD (gastroesophageal reflux disease) (Chronic) BPH (benign prostatic hyperplasia) (Chronic) Hospital Course and Treatment Imaging Results: 09/07/18 08:24 CT Abd [Abdomen/Pelvis WITH Contrast] [CT] Urgent Clinical Impression(s) from Imaging Studies Abdomen/Pelvis CT 09/04/18 12:17 IMPRESSION: 1. Moderate partial small bowel obstruction with a transition point in the middle the abdomen at the level the iliac crest. No evidence of ischemia. 2. Mild splenomegaly. Electronically Signed: Delta Goddard MD at 14:41 EDT Tel , Service support , KUB X-Ray 09/04/18 15:26 IMPRESSION: 1. Interval placement of nasogastric tube with the tip in the cardia the stomach and the side-port likely in the distal esophagus. 2. Partial small bowel obstruction. Electronically Signed: Delta Goddard MD at 16:50 EDT Tel , Service support , KUB X-Ray 09/04/18 17:35 IMPRESSION: Orogastric tube tip in stomach Distended loops of small bowel only partially included on the exam similar to prior, ileus versus obstruction Electronically Signed: Rory Macias, at 18:53 EDT Tel , Service support , KUB X-Ray 09/05/18 05:55 IMPRESSION: Mildly dilated jejunal loops. NG tube placed within the stomach. Electronically Signed: Solitario Darnell, at 9:30 EDT Tel , Service support , Small Bowel X-Ray 09/05/18 07:00 IMPRESSION: Dilated loops of proximal to mid ileum, predominantly distributed in left quadrant of the abdomen, with delayed small bowel transit. Consistent with persistent intermediate grade small bowel obstruction. Comparison CT abdomen and pelvis of 09/04/2017 there was a defined transition point between dilated and nondilated ileum centered on axial series 2 image 127 in the midline, and coronal series 601 image 36 and sagittal series 602 image 78, with bird beaking. Suspicious for adhesive disease. Electronically Signed: Delta Castro MD at 12:44 EDT Tel , Service support , Abdomen X-Ray 09/06/18 05:55 IMPRESSION: Negative study. Electronically Signed: Solitario Carie, at 9:14 EDT Tel , Service support , Abdomen/Pelvis CT 09/07/18 08:24 IMPRESSION: Tiny calcified granulomas in the liver and spleen which is enlarged. Multiple small mesenteric lymph nodes No evidence of mechanical small or large bowel obstruction Electronically Signed: Solitario Riverajameson, at 12:42 EDT Tel , Service support , Dr. Drake, Dr. Delaney, general surgery. Operations: None Procedures: - - NG tube insertion on suction. Summary of Care Provided: Patient seen and examined on day of discharge. He tolerated full liquid diet but still having abdominal pain mainly on the right side. Denied nausea or vomiting. Denies constipation or diarrhea. He continued to pass flatus. Because of continued pain, CT scan abdomen and pelvis with contrast revealed mildly distended small bowel, there is gas and contrast within the small bowel and colon down to the rectum without evidence of mechanical bowel obstruction. His vital signs are stable. The patient is a 58 year old M admitted because of abdominal pain associated with nausea that has been going on for almost 2 weeks and he was found to have findings consistent with partial small bowel obstruction on CT scan abdomen and pelvis with contrast. Patient had a history of cholecystectomy and herniorrhaphy years ago and this obstruction is likely due to adhesions. Patie nt was treated conservatively, kept on n.p.o., NG tube inserted with low suction, treated with IV fluids, serial KUBs, IV pain medications and IV antiemetics. His routine blood work was unremarkable and his electrolytes were within normal limits. LFT and lipase were normal. Troponin was negative. Urinalysis showed no evidence of acute infection. General surgery consulted and initially, there was a plan to take patient for surgery. Small bowel follow- through with serial films revealed dilated loops of proximal to mid ileum, consistent with intermediate grade small bowel obstruction. With conservative treatment, patient was able to have couple of bowel movements with loose stool and he has been passing flatus. He continued to complain of abdominal pain mainly on the right side of his abdomen. He tolerated full liquid diet. CT scan abdomen and pelvis with contrast repeated on the day of discharge because of continued abdominal pain and revealed mildly distended small bowel, there is gas and contrast within the small bowel and colon down to the rectum without evidence of mechanical bowel obstruction. I discussed the case with Dr. Delaney who thinks that patient can be discharged and can follow-up with general surgery as outpatient. Patient discharged home in a stable medical condition, discharged on OxyIR 5 mg p.o. q. twice daily PRN for pain, started back on his previous home medications without any changes, plan to follow-up with general surgery in 2 to 3 days, recommended from with PCP in 1 week. Patient Problems: Active and Suspected Problems Partial small bowel obstruction (Acute) - Physical Exam General: Alert, Oriented x3, Cooperative, No apparent distress HEENT: Atraumatic, PERRLA, EOMI, Normocephalic Oral: Moist Mucosa, No Gingival or Mucosal Lesions/ Ulcerations Neck: Supple, No JVD, Negative Carotid Bruits, Trachea Midline, Thyroid Normal Size and Texture Lungs: Clear to auscultation, Normal air movement, No rhonchi, No wheeze, No rales, Diminished Cardiovascular: Regular rate, Regular Rhythm, Normal S1, Normal S2, PMI Normal Abdomen: Bowel Sounds Present, Soft, Non-Distended, No Hepato-splenomegaly, Tender - Minimal tenderness, no guarding or rigidity. Extremities: No clubbing, No cyanosis, No edema Skin: No rashes, No breakdown Lymphatic: No Cervical, Supraclavicular, or Inguinal Adenopathy Neurological: Cranial nerves II-XII grossly intact, Neuro grossly intact Psych/Mental Status: Normal Affect, Appropriate Vital Signs Temp Pulse Resp BP Pulse Ox 97.8 F 50 L 20 H 134/76 H 97 09/07/18 08:22 09/07/18 08:22 09/07/18 08:22 09/07/18 08:22 09/07/18 08:22 Oxygen Flow Rate (L/min) 2 Oxygen Delivery Method Room Air Weight: 178 lb Body Mass Index (BMI) 25.5 Intake and Output for Last 24 Hours 09/05/18 09/06/18 09/07/18 23:59 23:59 23:59 Intake Total 3540 / 4555 4372 / 5833 3598 / 3598 Output Total 955 / 955 Balance 2585 / 3600 4372 / 5833 3598 / 3598 Laboratory Tests Past 24 Hrs 09/07/18 09/07/18 06:18 06:18 WBC 5.2 RBC 5.40 Hgb 12.7 L Hct 47.9 MCV 88.7 MCH 23.5 L MCHC 26.5 L RDW 12.3 RDW Differential 40.3 Plt Count 252 MPV 11.4 Immature Gran % (Auto) 0.400 Neut % (Auto) 53.7 Lymph % (Auto) 33.6 [place] % (Auto) 8.2 Eos % (Auto) 2.5 Baso % (Auto) 1.6 H Absolute Neuts (auto) 2.8 Absolute Lymphs (auto) 1.73 Total Counted Not Reportable Sodium 143 Potassium 4.3 Chloride 106 Carbon Dioxide 30.0 Anion Gap 7 BUN 5 L Creatinine 1.03 Estim Creat Clear Calc 80.72 Est GFR (MDRD) Af Amer 95 Est GFR (MDRD) Non-Af 79 BUN/Creatinine Ratio 4.9 L Glucose 149 H Calcium 8.9 POC Glucose 09/07/18 09/07/18 09/06/18 11:02 06:53 21:33 POC Glucose 308 H 147 H 190 H 09/06/18 17:19 POC Glucose 257 H Discharge Activity: Return to Normal Activity, May not drive while taking juan pablo cotic pain medications. Weight Bearing Status: Weight bearing as tolerated Call your doctor if you observe: Fever of 101 or Higher, Shortness of breath, Dizziness, Fainting spells, Chest pain, Increased palpitations (irregular heartbeat), Uncontrolled pain Home Medications: Medications to take at Discharge Aspirin [Aspirin EC] 81 mg PO DAILY 09/04/18 Docusate Sodium [Colace] 100 mg PO DAILY PRN PRN 09/04/18 Gabapentin [Neurontin] 400 mg PO TID 09/04/18 Insulin Aspart [Novolog Flexpen] 14 units SUBCUT TIDCM 09/04/18 Insulin Glargine,Hum.rec.anlog [Lantus] 35 unit SQ BID 09/04/18 Lisinopril [Zestril] 20 mg PO DAILY 09/04/18 Meloxicam [Mobic] 7.5 mg PO BID 09/04/18 Pantoprazole Sodium [Protonix] 40 mg PO DAILY 09/04/18 Tamsulosin HCl [Flomax] 0.4 mg PO DAILY 09/04/18 Oxycodone [Oxyir] 5 mg PO Q12H PRN PRN 5 Days #10 tab 09/07/18 Following Prescrptions Were Given to Patient: Oxycodone [Oxyir] 5 mg PO Q12H PRN PRN 5 Days #10 tab PRN Reason: Abdominal pain Prescription Printed Primary Care Physician: Care Physician,No Primary [NON-STAFF] - Please follow up with your Primary Care Physician in: 1 week. Please Follow Up With: Neva Bain MD When: 2-3 days. Patient Instructions: Small Bowel Obstruction Disposition: Home Minutes spent on discharge:: 32 Patient Condition:: Stable Medical Necessity - Tobacco Use Smoking Status: Former smoker - Patient quit cigarette tobacco usage in 2008. Tobacco Use: Non-smoker Meaningful Use Info Meaningful Use Diagnoses (Choose all that apply): None applicable Code Visit Inpatient E&M: 15113 Disch Hosp
[2018-09-07 16:18] VITALS: BP 112/68; PULSE 61; RESP 16; TEMP 36.7; O2SAT 98
== END 2018-09-07 16:15 | disposition home or self-care (01) | DRG 390 ==
LOC: ED 13:16 → MS3 16:52
PROVIDERS: Anesthesiology; Nurse Practitioner Family; Surgery; Admitting Provider Family Medicine; Emergency Provider Emergency Medicine; Referring Provider Family Medicine; Visit Provider Hospitalist
DX: K56.51 Intestinal adhesions [bands], with partial obstruction (principal); I10 Essential (primary) hypertension; K21.9 Gastro-esophageal reflux disease without esophagitis; N40.0 Benign prostatic hyperplasia without lower urinary tract symptoms; E78.5 Hyperlipidemia, unspecified; E11.40 Type 2 diabetes mellitus with diabetic neuropathy, unspecified; F10.11 Alcohol abuse, in remission; Z79.4 Long term (current) use of insulin; Z90.49 Acquired absence of other specified parts of digestive tract; Z87.891 Personal history of nicotine dependence
CPT/HCPCS: 36415; 74018; 74019; 74176; 74177; 74250; 80048; 80076; 81001; 82962; 83036; 83690; 84484; 85025; 93005; 99285; J7030; Q9967; J2405; J3490